=== PATIENT | female | born 1960 | race Caucasian/White ===

== ENCOUNTER → 2020-08-03 17:02 | Outpatient (CLI) | payer BC, SELFPAY ==
--- NOTE | ~2020-08-03 | MM_ITS ---
EXAMINATION: MM screening margarito BI w mustapha HISTORY: Screening mammogram TECHNIQUE: Craniocaudal and mediolateral oblique 3-D tomosynthesis images were obtained and synthetic 2-D images were generated. CAD analysis was submitted and interpreted. COMPARISON: 06/13/2019, 03/30/2018, 08/04/2016 bilateral digital screening mammogram examinations BREAST PARENCHYMAL COMPOSITION: There are scattered areas of fibroglandular density. FINDINGS: There is no evidence of suspicious mass, calcification, or architectural distortion to sugg est malignancy in either breast. There has been no suspicious interval change. IMPRESSION: 1. No mammographic evidence of malignancy. 2. Recommend routine screening mammography in one year. BI-RADS Category 1: Negative Reviewed, dictated and finalized at location A.
== END ==
DX: Z12.31 Encounter for screening mammogram for malignant neoplasm of breast (principal)
CPT/HCPCS: 77063; 77067

== ENCOUNTER → 2022-06-30 12:04 | Outpatient (CLI) | payer BC, SELFPAY ==
--- NOTE | ~2022-06-30 | MM_ITS ---
EXAMINATION: MM screening margarito BI w mustapha HISTORY: Screening mammogram TECHNIQUE: Craniocaudal and mediolateral oblique 3-D tomosynthesis images were obtained and synthetic 2-D images were generated. CAD analysis was submitted and interpreted. COMPARISON: 08/03/2020, 06/13/2019, 03/30/2018 bilateral screening mammogram examinations BREAST PARENCHYMAL COMPOSITION: There are scattered areas of fibroglandular density. FINDINGS: Bilateral mammographic asymmetries are noted. Bilateral diagnostic mammography is recommend ed, with ultrasound if required. IMPRESSION: 1. Bilateral mammographic asymmetries 2. Bilateral diagnostic mammography is recommended, with ultrasound if required BI-RADS Category 0: Incomplete: Needs additional imaging evaluation. Reviewed, dictated and finalized at location A. [employer]
== END ==
DX: Z12.31 Encounter for screening mammogram for malignant neoplasm of breast (principal); R92.8 Other abnormal and inconclusive findings on diagnostic imaging of breast
CPT/HCPCS: 77063; 77067

== ENCOUNTER → 2022-08-12 09:40 | Outpatient (CLI) | payer BC, SELFPAY ==
--- NOTE | ~2022-08-12 | XR_ITS ---
Lumbosacral Spine: AP and lateral views Clinical History: Pain Findings: The normal lordotic curve is maintained. The vertebral bodies and posterior elements are i ntact. There is mild to moderate degenerative disc narrowing at L5-S1. There is mild facet arthropath y from L3 through S1. The sacroiliac joints are normally outlined. Impression: Mild degenerative spondylosis, as above. Reviewed, dictated and finalized at location . Impression: Mild degenerative spondylosis, as above.
--- NOTE | ~2022-08-12 | XR_ITS ---
Cervical Spine: AP, lateral, open-mouth views Clinical History: Pain Findings: There is mild reversal normal cervical lordosis. There is 3 mm retrolisthesis of C5 over C6 . There is moderate to advanced degenerative disc narrowing at C5-C6 and C6-C7. There are anterior ma rginal osteophytes from C4 to C7. There is facet arthropathy at C2-C3 bilaterally. Pre-vertebral soft tissues are unremarkable. Impression: 3 mm retrolisthesis of C5 over C6. Mild to moderate degenerative spondylosis, as above. Reviewed, dictated and finalized at location M. Impression: 3 mm retrolisthesis of C5 over C6. Mild to moderate degenerative spondylosis, as above.
--- NOTE | ~2022-08-12 | XR_ITS ---
Thoracic spine: Clinical Indication: Pain AP and lateral views were performed. No fracture is seen. There is normal alignment of the vertebrae. The intervertebral disc spaces appe ar normal. Paravertebral soft tissues appear normal. Impression: No significant abnormalities noted. Reviewed, dictated and finalized at [facility]. Impression: No significant abnormalities noted.
== END ==
PROVIDERS: PCP Chiropractor; Visit Provider Chiropractor
DX: M54.6 Pain in thoracic spine (principal); M47.892 Other spondylosis, cervical region; M47.896 Other spondylosis, lumbar region
CPT/HCPCS: 72040; 72070; 72100

== ENCOUNTER → 2022-09-03 08:04 | Outpatient (CLI) | payer BC, SELFPAY ==
--- NOTE | ~2022-09-03 | MMUS_ITS ---
Corrected Report Correction to Ordering providers 09/12/2022 [facility] This report was recreated on 09/12/2022. Original report was signed by Héctor Devine M.D. on 09/04/2022 8:55 CDT. . EXAMINATION: MM diagnostic margarito BI w mustapha, US breast BI limited HISTORY: Bilateral asymmetries on screening mammogram TECHNIQUE: Additional 3-D tomosynthesis images of the breasts were performed and synthetic 2-D images were generated. CAD analysis was submitted and interpreted. High resolution limited bilateral breast ultrasound was performed. COMPARISON: 06/30/2022, 08/03/2020, 06/13/2019 BREAST PARENCHYMAL COMPOSITION: There are scattered areas of fibroglandular density. FINDINGS: MAMMOGRAPHIC FINDINGS: Right breast: There is a return to baseline fibroglandular appearance with spot compression of the right breast in the area questioned on screening mammogram. Left breast: There is focal asymmetry in the middle third of the lower breast at the 6:00 location. No suspicious mass or calcification are identified. A low- density mass in the far posterior third of the outer breast has a stable appearance when compared to prior mammograms. ULTRASOUND: Right breast: There is a 4 mm x 2 mm oval, circumscribed, parallel, hypoechoic mass with no posterior features or internal vascularity at the 9:00 location, 4 cm from the nipple. A 4 mm x 2 mm mass with similar sonographic features is present at the 12:00 location, 2 cm from the nipple. There is also a 5 mm round mass with otherwise similar sonographic features at the 10:00 location, 6 cm from the nipple Left breast: There is an 8 mm x 3 mm oval, circumscribed, parallel, hypoechoic mass with no posterior features or internal vascularity at the 5:00 location, 4 cm from the nipple. A 6 mm x 2 mm mass with similar sonographic features is present at the 6:00 location, 1 cm from the nipple. There is a 7 mm cyst at the 6:00 location. A mass with features suggestive of an intramammary lymph node is seen at the 5:00 location 4 cm from the nipple. IMPRESSION: 1. Focal asymmetry of the left breast and sonographically detected masses as described above. 2. Recommend 6 month follow-up bilateral diagnostic mammogram and ultrasound. BI-RADS category 3, probably benign findings. Reviewed, dictated and finalized at location A. MTDD IMPRESSION: 1. Focal asymmetry of the left breast and sonographically detected masses as de scribed above. 2. Recommend 6 month follow-up bilateral diagnostic mammogram and ultrasound. BI-RADS category 3, probably benign findings.
== END ==
DX: R92.8 Other abnormal and inconclusive findings on diagnostic imaging of breast (principal)
CPT/HCPCS: 76642; 77062; 77066; G0279

== ENCOUNTER → 2023-03-09 07:57 | Outpatient (CLI) | payer BC, SELFPAY ==
--- NOTE | ~2023-03-09 | MMUS_ITS ---
EXAMINATION: MM diagnostic margarito BI w must[place], US breast BI limited HISTORY: Six-month follow-up of probably benign findings from September 03, 2022 20 diagnostic mammogram and Limited breast ultrasound examination TECHNIQUE: Full field and spot ML, MLO and CC 3-D tomosynthesis images of both breasts were performed and synthetic 2-D images were generated. CAD analysis was submitted and interpreted. High resolution limited bilateral breast ultrasound was performed. COMPARISON: September 03, 2022 bilateral diagnostic mammography and bilateral Limited breast ultrasound June 30, 2022 bilateral screening mammogram Serial screening mammographic examinations dating back to 08/04/2016 BREAST PARENCHYMAL COMPOSITION: There are scattered areas of fibroglandular density. FINDINGS: MAMMOGRAPHIC FINDINGS: There is stable fibroglandular asymmetry. No new or enlarging suspicious mass or any architectural di stortion, malignant calcification, skin thickening or retraction of either breast is detected.. ULTRASOUND: Right breast: 10:00 8 cm from nipple: 3.6 x 4 mm sonolucency without internal vascularity or posterior shadowing Left breast: 5:00 subareolar area: Parallel circumscribed 2.8 x 6 x 4.7 mm sonolucency with through transmission a nd posterior enhancement consistent with benign process IMPRESSION: 1. Benign findings 2. No mammographic or sonographic evidence of malignancy BI-RADS Category 2: Benign finding(s). Reviewed, dictated and finalized at location A. IMPRESSION: 1. Benign findings 2. No mammographic or sonographic evidence of malignancy BI-RADS Category 2: Benign finding(s).
== END ==
DX: R92.8 Other abnormal and inconclusive findings on diagnostic imaging of breast (principal)
CPT/HCPCS: 76642; 77062; 77066; G0279

== ENCOUNTER 2024-04-25 14:32 | Outpatient (CLI) | payer BC, SELFPAY ==
--- NOTE | ~2024-04-25 | MM_ITS ---
EXAMINATION: MM screening margarito BI w must[place]ha HISTORY: Screening TECHNIQUE: Craniocaudal and mediolateral oblique 3-D tomosynthesis images were obtained and synthetic 2-D images were generated. CAD analysis was submitted and interpreted. COMPARISON: Comparison to multiple prior studies sequentially, with oldest reviewed study dated 03/18. BREAST PARENCHYMAL COMPOSITION: Not dense: There are scattered areas of fibroglandular density. FINDINGS: There is no evidence of suspicious mass, calcification, or architectural distortion to sugg est malignancy in either breast. There has been no suspicious interval change. IMPRESSION: 1. No mammographic evidence of malignancy. 2. Recommend routine screening mammography in one year. BI-RADS Category 1: Negative Reviewed, dictated and finalized at location B. SMAN/WOMAN
== END 2024-04-25 14:33 | disposition home or self-care (01) ==
LOC: MICIMG 14:33
DX: Z12.31 Encounter for screening mammogram for malignant neoplasm of breast (principal)
CPT/HCPCS: 77063; 77067

== ENCOUNTER 2024-07-19 07:04 | Outpatient (CLI) | payer BC, SELFPAY | END 2024-07-19 07:05 | disposition home or self-care (01) | LOC: MICIMG 07:05 | PROVIDERS: PCP Chiropractor; Visit Provider Chiropractor | DX: M51.379 Other intervertebral disc degeneration, lumbosacral region without mention of lumbar back pain or lower extremity pain (principal); M25.552 Pain in left hip; M25.551 Pain in right hip | CPT/HCPCS: 72100; 73521 ==